=== PATIENT | male | born 1950 | race Caucasian/White ===

== ENCOUNTER 2021-06-24 13:35 | Emergency (ER) | payer MEDICARE ==
[2021-06-24 13:47] VITALS: BP 181/91; PULSE 63
[2021-06-24] MEDS ORDERED: Lidocaine 1% with EPINEPHrine 1:100,000 50 ML MDV INFILT ONE (13:59)
[2021-06-24] MEDS ORDERED: Bacitracin Oint 1 GM U/D Packet TOP ONE (14:25)
--- NOTE | 2021-06-24 14:39 | EDM.PDOC ---
ED HPI GENERAL MEDICAL PROBLEM - General Chief Complaint: Laceration Stated Complaint: R MIDDLE FINGER CUT Time Seen by Provider: 06/24/21 14:10 Source of Information: Reports: Patient History Limitations: Reports: No Limitations - History of Present Illness INITIAL COMMENTS - FREE TEXT/NARRATIVE: 70-year-old male was using a table saw when he caught the index and middle finger of the right hand on the edge of the blade. He has lacerations to the distal fingers, they are both covered with Band-Aids and the laceration on the middle finger is persistently bleeding and may need repair. No other injury at this time. Onset: Sudden Duration: Hour(s): (1 hour ago) Location: Reports: Upper Extremity, Right Associated Symptoms: Reports: No Other Symptoms - Related Data Allergies Allergy/AdvReac Type Severity Reaction Status Date / Time No Known Allergies Allergy Verified 10/01/18 08:43 Home Meds: Home Meds Aspirin [Adult Low Dose Aspirin EC] 81 mg PO DAILY 01/15/15 [History] Simvastatin [Zocor] 80 mg PO DAILY 01/15/15 [History] Atenolol/Chlorthalidone [Atenolol-Chlorthalidone 50-25] 1 tab PO DAILY 10/01/18 [History] Potassium Chloride [Klor-Con 10] 10 meq PO DAILY 10/01/18 [History] Vit A/Vit C/Vit E/Zinc/Copper [Preservision] 100 PO 06/24/21 [History] Social & Family History - Tobacco Use Tobacco Use Status *Q: Never Tobacco User - Alcohol Use Days Per Week of Alcohol Use: 1 Number of Drinks Per Day: 0 Total Drinks Per Week: 0 - Recreational Drug Use Recreational Drug Use: No ED ROS GENERAL - Review of Systems Review Of Systems: See Below Constitutional: Denies: Fever, Chills HEENT: Reports: No Symptoms Respiratory: Reports: No Symptoms GI/Abdominal: Reports: No Symptoms Skin: Reports: Other (Lacerations to the right hand) Neurological: Reports: No Symptoms ED EXAM, SKIN/RASH Exam: See Below Exam Limited By: No Limitations General Appearance: Alert, No Apparent Distress Head: Atraumatic Respiratory/Chest: No Respiratory Distress Extremities: Other (Exam is otherwise limited to the right hand. Bandages were removed and the patient has a small 1 cm laceration to the distal index finger no repair needed. There is a 1 x 1.5 cm laceration middle finger) Neurological: Alert, Oriented Psychiatric: Normal Affect, Normal Mood Skin: Other (The radial aspect of the distal middle finger has a 1 x 1.5 cm a avulsed laceration of the epidermis and part of the dermis. ) Course - Vital Signs Last Recorded V/S: Last Vital Signs Temp 97.0 F 06/24/21 13:46 Pulse 63 06/24/21 13:46 Resp 16 06/24/21 13:46 BP 181/91 H 06/24/21 13:46 Pulse Ox 96 06/24/21 13:46 - Orders/Labs/Meds Meds: Medications Discontinued Medications Generic Name Dose Route Start Last Admin Trade Name Freq PRN Reason Stop Dose Admin Bacitracin 1 dose 06/24/21 14:25 06/24/21 14:34 Bacitracin Oint 1 Gm U/D Packet TOP 06/24/21 14:26 1 dose ONETIME ONE Administration Lidocaine/Epinephrine 30 ml 06/24/21 13:59 06/24/21 14:34 Lidocaine 1% With Epinephrine 1:100,000 50 Ml Mdv INFILT 06/24/21 14:00 1 ml ONETIME ONE Administration - Re-Assessments/Exams Free Text/Narrative Re-Assessment/Exam: 06/24/21 14:37 The injury to the middle finger was anesthetized with 1% lidocaine with epinephrine, washed thoroughly with saline and trimmed with an iris scissors. Using cautery the capillary bed was cauterized at the bleeding points. Topical bacitracin and a Band-Aid was applied, he was also given a small aluminum splint to wear for protection in the future. He can recheck if concerns of infection but no further follow-up as needed, no suturing or repair was done. Departure - Departure Time of Disposition: 14:40 Disposition: Home, Self-Care 01 Clinical Impression: Laceration of finger Qualifiers: Encounter type: initial encounter Finger: middle finger Damage to nail status: without damage Foreign body presence: without foreign body Laterality: right Qualified Code(s): S61.212A - Laceration without foreign body of right middle finger without damage to nail, initial encounter - Discharge Information Instructions: Laceration Care, Adult Referrals: Adonay Hein MD [Primary Care Provider] - Forms: ED Department Discharge Care Plan Goals: Keep wound covered and clean while healing. Wear splint to protect the wound if needed. Recheck at any time if concerns of infection or not healing satisfactorily. Otherwise increase activity as tolerated. Sepsis Event Note (ED) - Evaluation Sepsis Screening Result: No Definite Risk - Focused Exam Vital Signs: Vital Signs Temp Pulse Resp BP Pulse Ox 06/24/21 13:46 97.0 F 63 16 181/91 H 96
== END 2021-06-24 14:44 | disposition home or self-care (01) ==
LOC: JP.ED 13:35
DX: S61.212A Laceration without foreign body of right middle finger without damage to nail, initial encounter (principal); S61.210A Laceration without foreign body of right index finger without damage to nail, initial encounter; Z79.899 Other long term (current) drug therapy; Z79.82 Long term (current) use of aspirin; W26.8XXA Contact with other sharp object(s), not elsewhere classified, initial encounter
CPT/HCPCS: 99282

== ENCOUNTER 2023-12-30 07:58 | Day surgery (SDC) | payer MEDICARE ==
[2023-12-30] MEDS: Lactated Ringers 1,000 ML IV SCH (08:39)
[2023-12-30] MEDS ORDERED: Propofol 200 MG/20 ML SDV ONE (09:37)
[2023-12-30] MEDS ORDERED: fentaNYL 50 MCG/ML SDV ONE (09:37)
[2023-12-30 11:41] VITALS: BP 147/69; PULSE 52
== END 2023-12-30 11:50 | disposition home or self-care (01) ==
LOC: JP.SDS 07:58
PROVIDERS: ATTEND Family Medicine
DX: Z12.11 Encounter for screening for malignant neoplasm of colon (principal); I10 Essential (primary) hypertension; E11.9 Type 2 diabetes mellitus without complications; E78.5 Hyperlipidemia, unspecified; K21.9 Gastro-esophageal reflux disease without esophagitis; Z79.899 Other long term (current) drug therapy
CPT/HCPCS: G0121; J2704; J3010; J7120